=== PATIENT | female | born 1970 | race Caucasian/White ===

== ENCOUNTER 2023-05-08 08:17 | Outpatient (CLI) | payer OTHER, SELFPAY ==
--- NOTE | ~2023-05-08 | XR_ITS ---
XR knee RT min 4V DATE: 05/08/2023 08:52 INDICATION: Right knee pain since January 2023. No injury. TECHNIQUE: [place] view. Weightbearing AP, PA and lateral views. COMPARISON: None FINDINGS: There is slight periarticular spurring of the patella. Joint spaces are relatively preserve d. No radiopaque intra-articular loose body or chondrocalcinosis. No fracture or dislocation, periost eal reaction or bone destruction. IMPRESSION: Slight periarticular spurring of the patella Reviewed, dictated and finalized at location [facility]
== END 2023-05-08 08:18 | disposition home or self-care (01) ==
LOC: ANHIMG 08:24
PROVIDERS: PCP Family Medicine; Visit Provider Family Medicine
DX: M25.561 Pain in right knee (principal)
CPT/HCPCS: 73564

== ENCOUNTER 2023-08-07 14:43 | Outpatient (CLI) | payer OTHER, SELFPAY ==
--- NOTE | ~2023-08-07 | DEXA_ITS ---
Bone Density Report Name: BRANDON BETANCUR Age: 52 Sex: Female Ethnicity: White Date of : 1970 Indication: postmenopausal; screening for osteoporosis; height loss; Referring Provider: JOHNATHON, NIKHIL Study: Bone densitometry was performed. Exam Date: August 07, 2023 Accession number: [id number] Bone Density: Region BMD T-score Z-score Classification AP Spine (L1-L4) 1.013 -0.3 0.8 Normal Femoral Neck (Left) 0.639 -1.9 -0.9 Osteopenia Total Hip (Left) 0.875 -0.5 0.1 Normal Femoral Neck (Right) 0.615 -2.1 -1.1 Osteopenia Total Hip (Right) 0.854 -0.7 -0.1 Normal Total Hip Mean 0.865 -0.6 0.0 Normal World Health Organization criteria for BMD impression classify patients as: Normal (T-score at or above -1.0), Osteopenia (T-score between -1.0 and -2.5), or Osteoporosis (T-score at or below -2.5). 10-year Fracture Risk(1): Major Osteoporotic Fracture 7.8% Hip Fracture 0.9% Reported Risk Factors: [place] (), Neck BMD=0.615, BMI=26.9 (1) FRAX(R) Version 3.08. Fracture probability calculated for an untreated patient. Fracture probability may be lower if the patient has received treatment. Clinical Information Provided by Patient: Has used the following medications: HRT (i.e. estrogen/hormone therapy) Patient maximum height was 64.25 Menopause Age: 51 No regular weight bearing exercise Does not regularly consume dairy products Drinks caffeinated beverages Onset of menses at age 9 Number of children 3 Impression: The patient has low bone mass, based on the Right Femoral Neck T-score. The patient has an estimated ten-year risk of hip fracture of 0.9% and an estimated ten-year risk of major fracture of 7.8%, based on the WHO FRAX algorithm. Discussion: BONE DENSITY IS LOW AT ONE OR MORE SKELETAL SITES. This patient's lowest T-score is low at one or more skeletal sites. It meets the World Health Organization's (WHO) criteria for ?low bone mass? (T-score between -1.0 and -2.5). The patient's 10-year risk of fracture as calculated by FRAX is less than the threshold where pharmacological therapy is recommended by the National Osteoporosis Foundation (NOF). However, all treatment decisions require clinical judgment and consideration of individual patient factors, including patient preferences, comorbidities, previous drug use, risk factors not captured in the FRAX model (e.g., frailty, falls, vitamin D deficiency, increased bone turnover, interval significant decline in bone density) and possible under or overestimation of fracture risk by FRAX. The patient should follow a healthful lifestyle (good nutrition with adequate calcium and vitamin D, and appropriate weight-bearing exercise). Follow-Up: Consider repeating this study in 2 to 3 years to reassess this patient's status, or luz maria
== END 2023-08-07 14:44 ==
PROVIDERS: PCP Nurse Practitioner; Visit Provider Nurse Practitioner
DX: Z78.0 Asymptomatic menopausal state (principal); M85.852 Other specified disorders of bone density and structure, left thigh; M85.851 Other specified disorders of bone density and structure, right thigh
CPT/HCPCS: 77080

== ENCOUNTER 2025-04-04 12:36 | Emergency (ER) | payer OTHER, SELFPAY ==
--- NOTE | 2025-04-04 | CONSULT_PTH ---
PATIENT: Maryam Alegre LOC: [facility]#:[id number] AGE/SX: 54/F ROOM: RE04/04/[address]: Nithya Villasenor MD : 1970 BED: DIS: 04/04/2025 SPEC #: [id number] RECD: 04/04/25 14:17 STATUS: SHAHIDA RE #: [id number] TAMARA: 04/04/25 00:[address]: Nithya Villasenor DEPT: [facility] Consult RECD BY: Beata Waller MLT, ([facility]) Tissues: A - Peripheral Smear Procedures: Hematology Consult
[2025-04-04 12:39] VITALS: BP 144/117; PULSE 102; RESP 20; TEMP 36.7; O2SAT 98
[2025-04-04 13:21] LABS: Add Urine Microscopic? NO; Appearance Urine Clear (Clear); Glucose Urine UA Negative (Negative); Leukocyte Esterase Ur Negative LEU/UL (Negative); Nitrate Urine Negative (Negative); Specific Grav Ur 1.003 (1.001-1.035)
[2025-04-04 13:22] LABS: Hematocrit 41.6 % (37.0-47.0); Hemoglobin 13.7 g/dL (12.0-15.0); Mean Corpuscular HGB Conc 32.9 g/dl (32-36); Mean Corpuscular Hemoglobin 29.3 pg (26-34); Mean Corpuscular Volume 88.9 fl (80-100); Platelet Count Result 216 k/mm3 (150-375); Red Blood Count 4.68 M/mm3 (4.2-5.4); White Blood Count 12.2 K/mm3 (4.5-10.0)
[2025-04-04] MEDS: ONDANSETRON HCL ODT 4 MG TABLET PO (13:30)
[2025-04-04] MEDS: MAG HYDROX/AL HYDROX/SIMETH 30 ML UDC PO (13:30)
[2025-04-04 13:36] LABS: Alanine Aminotransferase 33 U/L (6-35); Albumin Level 4.3 g/dL (3.5-5.1); Alkaline Phosphatase 67 U/L (38-126); Anion Gap 6 mmol/L (4-12); Aspartate Amino Transferase 52 U/L (14-36); Bilirubin,Total 0.5 mg/dL (0.2-1.3); Blood Urea Nitrogen 9 mg/dL (7-17); Calcium 9.1 mg/dL (8.4-10.2); Carbon Dioxide 29 mmol/L (22-30); Chloride 104 mmol/L (98-107); Estimated CRCL calculation 58 ml/min; Estimated Glomerular Filt Rate > 60; Glucose 96 mg/dL (65-110); Lipase 97 U/L (23-300); Potassium 4.0 mmol/L (3.4-5.0); Sodium 139 mmol/L (137-145); Total Protein 7.6 g/dL (6.3-8.2)
--- OUTSIDE RECORDS SUMMARY | 2025-04-04 13:42 | XMS_ITS | Encounter Summary ---
Author Organization [facility] Address [address] [place] [address] Care Team Providers Care Certified Alcohol And Drug Counselor Name Role Phone Unavailable Primary Care Provider Unavailabl e Encounter Details Date Type Department Care Team (Latest Contact Info) Description 07/23/2021 [facility] [place] Social History Tobacco Use Types Packs/Day Years Used Date Smoking Tobacco: Never Assessed Comments Unknown Sex and Gender Information Value Date Recorded Sex Assigned at Not on file Legal Sex Female 10:32 AM [facility] Gender Identity Not on file Sexual Orientation Not on file documented as of this encounter Plan of Treatment Not on file documented as of this encounter Visit Diagnoses Not on filedocumented in this encounter
--- OUTSIDE RECORDS SUMMARY | 2025-04-04 13:42 | XMS_ITS | Encounter Summary ---
Author Organization [facility] Address [address] [place] [address] Care Team Providers Care Convention Manager Name Role Phone Unavailable Primary Care Provider Unavailabl e Encounter Details Date Type Department Care Team (Latest Contact Info) Description 04/07/2023 [facility] [place] Social History Tobacco Use Types Packs/Day Years Used Date Smoking Tobacco: Never Assessed Comments Unknown Sex and Gender Information Value Date Recorded Sex Assigned at Not on file Legal Sex Female 10:32 AM [facility] Gender Identity Not on file Sexual Orientation Not on file documented as of this encounter Plan of Treatment Not on file documented as of this encounter Visit Diagnoses Not on filedocumented in this encounter
--- OUTSIDE RECORDS SUMMARY | 2025-04-04 13:42 | XMS_ITS | Clinical Summary ---
Author Organization [facility] Address [address] [place] [address] Care Team Providers Care Sap Abap Programmer Name Role Phone Unavailable Primary Care Provider Unavailabl e Social History Tobacco Use Types Packs/Day Years Used Date Smoking Tobacco: Never Assessed Comments Unknown Sex and Gender Information Value Date Recorded Sex Assigned at Not on file Legal Sex Female 10:32 AM [facility] Gender Identity Not on file Sexual Orientation Not on file Plan of Treatment Not on file Insurance VICTORIANO JUAN [id number] CIGNA CIGNA VICTORIANO JUAN [id number]
--- OUTSIDE RECORDS SUMMARY | 2025-04-04 13:42 | XMS_ITS | Encounter Summary ---
Author Organization [facility] Address [address] [place] [address] Care Team Providers Care Product Director Name Role Phone Unavailable Primary Care Provider Unavailabl e Encounter Details Date Type Department Care Team (Latest Contact Info) Description 05/30/2022 [facility] [place] Social History Tobacco Use Types Packs/Day Years Used Date Smoking Tobacco: Never Assessed Comments Unknown Sex and Gender Information Value Date Recorded Sex Assigned at Not on file Legal Sex Female 10:32 AM [facility] Gender Identity Not on file Sexual Orientation Not on file documented as of this encounter Plan of Treatment Not on file documented as of this encounter Visit Diagnoses Not on filedocumented in this encounter
--- OUTSIDE RECORDS SUMMARY | 2025-04-04 13:42 | XMS_ITS | Clinical Summary ---
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 Encounters Date Type Department Care Team Description 02/09/2025 8:40 AM CDT - 02/09/2025 11:59 PM CDT Hospital Encounter [facility] - Breast Imaging [address] [place] [id number] Abnormality of right breast on screening mammography Discharge Disposition: Discharge to home or self care 02/09/2025 8:40 AM CDT - 02/09/2025 11:59 PM CDT Hospital Encounter [facility] - Breast Imaging [address] [place] [address] [address] [place] [address] Abnormality of right breast on screening mammography Discharge Disposition: Discharge to home or self care 02/09/2025 Results Follow-Up [facility] [address] [place] [address] Floor [address] [place] [id number] Lourdes Acosta PA Diagnostic Mammogram Right [place] 02/03/2025 Orders Only [facility] [address] [place] [address] [address] [place] [address] Lourdes Acosta PA Mass of right breast, unspecified quadrant (Primary Dx) 02/03/2025 Results Follow-Up [facility] [address] [place] [address] [address] [place] [address] Lourdes Acosta PA Screening Mammogram Bilateral W [place] 02/01/2025 8:30 AM CDT - 02/01/2025 11:59 PM CDT Hospital Encounter [facility] - Breast Imaging [address] [place] [address] [address] [place] [address] Encounter for screening mammogram for malignant neoplasm of breast Discharge Disposition: Discharge to home or self care 02/01/2025 8:30 AM CDT [facility] [address] [place] [address] [address] [place] [address] Lourdes Acosta PA Fibroadenoma of breast, unspecified laterality (Primary Dx); Encounter for screening mammogram for malignant neoplasm of breast; Fibrocystic breast changes of both breasts 01/31/2025 [facility] [address] [place] [address] [address] [place] [address] Lourdes Acosta PA Encounter for screening mammogram for malignant neoplasm of breast (Primary Dx) from Last 3 Months Immunizations Immunization Administration Dates Next Due H1N1 All Forms 05/03/2009 Hep A, Adult 06/27/2021,11/24/2019 Influenza, Quadrivalent, Spl it, Preservative Free, Intramuscular 01/20/2020 Influenza, Trivalent, IM (MDV) ,04/21/2017,02/02/2017,02/15 Pfizer SARS-CoV-2 Monovalent Vaccination (12+ Yrs) PURPLE 04/19/2021,08/11/2020,07/21/2020 Tdap 11/24/2019,05/03/2008 Surgical History Surgery Date Site/Laterality Comments BREAST BIOPSY 05/05/2008 - 05/04/2009 BREAST EXCISIONAL BIOPSY 05/05/2008 - 05/04/2009 Left Medical History Medical History Date Comments Fibroadenoma of breast Family History Medical History Relation Name Comments No Known Problems Father No Known Problems Mother Relation Name Status Comments Father Mother Social History Tobacco Use Types Packs/Day Years Used Date Smoking Tobacco: Never Smokeless Tobacco: Never Alcohol Use Standard Drinks/Week Comments Defer 0 (1 standard drink = 0.6 oz pur e alcohol) Comments No Sex and Gender Information Value Date Recorded Sex Assigned at Not on file 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 Gender Identity Not on file Sexual Orientation Not on file Obstetrics History Para Term AB IAB SAB Ectopic Multiple Livin g Live Births 5 3 Date Outcome GA Total Labor Labor/2nd/3rd Weight Sex Type Anes PTL Vane A1 A5 Name Clin Last Filed Vital Signs Vital Sign Reading Time Taken Comments Blood Pressure 116/75 07/26/2014 4:06 PM CDT Pulse 71 07/26/2014 4:06 PM CDT Temperature - - Respiratory Rate - - Oxygen Saturation 100% 07/26/2014 4:06 PM CDT Inhaled Oxygen Concentration - - Weight 71 kg (156 lb 9.6 oz) 02/01/2025 8:35 AM CDT Height 164.2 cm (5' 4.65) 02/01/2025 8:35 AM CD T Body Mass Index 26.35 02/01/2025 8:35 AM CDT Plan of Treatment Health Maintenance Due Date Last Done Comments Cervical Cancer Screening 1970 Colon Cancer Screening-Colonoscopy 1970 Depression Screening 1970 Hepatitis C Screening 1970 Hepatitis B Screening 1986 Regular Well Visit/Exam 18-64 1986 Zoster Vaccine (1 of 2) 2018 Covid-19 Vaccine ( season) 2025 04/19/2021, 08/11/2020, 07/21/2020 Influenza Vaccine (#1) 2025 , 01/20/2020, 04/21/2017, Additional history exists Breast Cancer Screening-Mammogram 02/01/2026 02/01/2025, 01/26/2024, 01/20/2023, Additional history exists DTaP/Tdap/Td Vaccine (3 - Td or Tdap) 11/23/2029 11/24/2019, 05/03/2008 Pneumococcal vaccine <65 Aged Out No longer eligible based on patient's age to complete this topic Procedures Procedure Name Priority Date/Time Associated Diagnosis Comments US BREAST RIGHT LIMITED Schedule Routine, Read Routine (OP Routine) 02/09/2025 9:31 AM CDT Abnormality of right breast on screening mammography DIAGNOSTIC MAMMOGRAM RIGHT W [place] Schedule Routine, Read Routine (OP Routine) 02/09/2025 9:12 AM CDT Abnormality of right breast on screening mammography SCREENING MAMMOGRAM BILATERAL W [place] Schedule Routine, Read Routine (OP Routine) 02/01/2025 9:06 AM CDT Encounter for screening mammogram for malignant neoplasm of breast from Last 3 Months Results * US Breast Right Limited (02/09/2025 9:31 AM CDT) Anatomical Region Laterality Modality Breast Right Ultrasound 02/09/2025 9:45 AM CDT Impressions 02/09/2025 10:52 AM CDT 1. Screen detected small oval mass in the lower central right breast at mammography correlates with a 0.7 cm benign cyst in the right breast at 6:00, 9 cm from the nipple. 2. No mammographic evidence of malignancy in the right breast. OVERALL FINAL ASSESSMENT: BI-RADS Category 2: Benign. RECOMMENDATION: Annual screening mammography is recommended. Dr. Danielle Easton discussed the above findings and recommendations with the patient. Dictated by: Danielle Easton MD The radiology attending physician has personally reviewed this study, and had reviewed and/or edited this written report and agrees with it. Electronically signed by: Josiane Flores MD Narrative 02/09/2025 10:52 AM CDT EXAMINATION: RIGHT UNILATERAL DIGITAL DIAGNOSTIC MAMMOGRAM AND DIGITAL BREAST TOMOSYNTHESIS; RIGHT BREAST SONOGRAM HISTORY: 54-year-old woman presents for further evaluation of screen detected right small oval breast mass. COMPARISON: Screening mammogram 02/01/2025, screening mammogram 01/26/2024, screening mammogram 01/20/2023, screening mammogram 01/18/2022 TECHNIQUE: Full field digital mammographic views of the RIGHT breast were performed, including computer aided detection (CAD) and digital breast tomosynthesis (DBT). Directed ultrasound evaluation of the RIGHT breast was performed by a trained bucket pusher and by Dr. Easton. BREAST PARENCHYMAL COMPOSITION: There are scattered areas of fibroglandular density. MAMMOGRAM FINDINGS: Oval slightly lobulated circumscribed 0.8 cm mass in the lower central right breast persists on spot compression. No other suspicious finding is seen in right breast. SONOGRAM FINDINGS: In the right breast at 6:00, 9 cm from nipple there is a 0.7 x 0.6 x 0.3 cm oval, slightly lobulated circumscribed anechoic benign cyst, without associated vascularity. This correlates with the findings on mammogram. us Lourdes RANGEL IM MAMMO PROCEDURES Final Resu lt * Diagnostic Mammogram Right W [place] (02/09/2025 9:12 AM CDT) Anatomical Region Laterality Modality Breast Right Mammography 02/09/2025 9:45 AM CDT Impressions 02/09/2025 10:52 AM CDT 1. Screen detected small oval mass in the lower central right breast at mammography correlates with a 0.7 cm benign cyst in the right breast at 6:00, 9 cm from the nipple. 2. No mammographic evidence of malignancy in the right breast. OVERALL FINAL ASSESSMENT: BI-RADS Category 2: Benign. RECOMMENDATION: Annual screening mammography is recommended. Dr. Danielle Easton discussed the above findings and recommendations with the patient. Dictated by: Danielle Easton MD The radiology attending physician has personally reviewed this study, and had reviewed and/or edited this written report and agrees with it. Electronically signed by: Josiane Flores MD Narrative 02/09/2025 10:52 AM CDT EXAMINATION: RIGHT UNILATERAL DIGITAL DIAGNOSTIC MAMMOGRAM AND DIGITAL BREAST TOMOSYNTHESIS; RIGHT BREAST SONOGRAM HISTORY: 54-year-old woman presents for further evaluation of screen detected right small oval breast mass. COMPARISON: Screening mammogram 02/01/2025, screening mammogram 01/26/2024, screening mammogram 01/20/2023, screening mammogram 01/18/2022 TECHNIQUE: Full field digital mammographic views of the RIGHT breast were performed, including computer aided detection (CAD) and digital breast tomosynthesis (DBT). Directed ultrasound evaluation of the RIGHT breast was performed by a trained bucket pusher and by Dr. Easton. BREAST PARENCHYMAL COMPOSITION: There are scattered areas of fibroglandular density. MAMMOGRAM FINDINGS: Oval slightly lobulated circumscribed 0.8 cm mass in the lower central right breast persists on spot compression. No other suspicious finding is seen in right breast. SONOGRAM FINDINGS: In the right breast at 6:00, 9 cm from nipple there is a 0.7 x 0.6 x 0.3 cm oval, slightly lobulated circumscribed anechoic benign cyst, without associated vascularity. This correlates with the findings on mammogram. us Lourdes RANGEL IMG MAMMO PROCEDURES Final Resu lt * (ABNORMAL) Screening Mammogram Bilateral W [place] (02/01/2025 9:06 AM CDT) Anatomical Region Laterality Modality Breast Bilateral Mammography Addenda Addendum by Esmer Jenkins MD on 02/04/2025 12:37 PM CDT This addendum is being issued to correct the transcribed BI-RADS and Recommendations in the report. OVERALL BI-RADS FINAL ASSESSMENT: 0 - Incomplete: Needs Additional Imaging Evaluation RECOMMENDATION: Recommend right breast diagnostic mammogram with possible ultrasound. Impressions 02/02/2025 4:19 PM CDT Right 1) Mass: Right breast mass in the lower central region. Assessment: 0 - Incomplete. Diagnostic mammogram with possible ultrasound is recommended. Left No evidence of malignancy. OVERALL BI-RADS FINAL ASSESSMENT: 1 - Negative RECOMMENDATION: Recommend bilateral annual screening mammography. Narrative 02/02/2025 4:19 PM CDT EXAMINATION: Screening Mammogram Bilateral W Is[place]: 02/01/2025 COMPARISON: Relevant prior studies available at the time of interpretation were reviewed, including the most recent mammogram on: 01/26/2024. TECHNIQUE: Mammography was performed with 2D and 3D digital breast tomosynthesis (DBT) images. CAD was utilized. BREAST PARENCHYMAL COMPOSITION: There are scattered areas of fibroglandular density. FINDINGS: Right 1) Mass: There is a mass seen in the lower central region of the right breast. This finding needs additional imaging evaluation. Left There is no suspicious mass, calcification, or architectural distortion. Lourdes RANGEL IMG MAMMO PROCEDURES Edited Res ult - Final from Last 3 Months [facility] [employer] OPEN ACCESS CIGNA OPEN ACCESS [facility] OPEN ACCESS Care Teams Oncology Consultant Relationship Specialty Start Date End Date Elda Gore MD PCP - General 06/03/17
--- OUTSIDE RECORDS SUMMARY | 2025-04-04 13:42 | XMS_ITS | Encounter Summary ---
Author Organization [facility] Address [address] [facility] [address] [place] [address] Phone Care Team Providers Care Plastics Repairer Name Role Phone Elda Gore MD Primary Care Provider + Encounter Details Date Type Department Care Team (Late st Contact Info) Description 02/09/2025 Results Follow-Up [facility] Surgery [address] [facility] Floor [address] [place] [phone] Lourdes Acosta PA [address] [facility] [phone] [place] [address] Diagnostic Mammogram Right W [place] Social History Tobacco Use Types Packs/Day Years Used Date Smoking Tobacco: Never Smokeless Tobacco: Never Alcohol Use Standard Drinks/Week Comments Defer 0 (1 standard drink = 0.6 oz pur e alcohol) Comments No Sex and Gender Information Value Date Recorded Sex Assigned at Not on file 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
--- OUTSIDE RECORDS SUMMARY | 2025-04-04 13:42 | XMS_ITS | Encounter Summary ---
Author Organization [facility] Address [address] [place] [address] Care Team Providers Care Program Scheduler Name Role Phone Unavailable Primary Care Provider Unavailabl e Encounter Details Date Type Department Care Team (Latest Contact Info) Description 05/07/2021 [facility] [place] Social History Tobacco Use Types Packs/Day Years Used Date Smoking Tobacco: Never Assessed Comments Unknown Sex and Gender Information Value Date Recorded Sex Assigned at Not on file Legal Sex Female 10:32 AM [facility] Gender Identity Not on file Sexual Orientation Not on file documented as of this encounter Plan of Treatment Not on file documented as of this encounter Visit Diagnoses Not on filedocumented in this encounter
--- OUTSIDE RECORDS SUMMARY | 2025-04-04 13:42 | XMS_ITS | Encounter Summary ---
Author Organization [facility] Address [address] [place] [address] Care Team Providers Care Process Plant Operator Name Role Phone Unavailable Primary Care Provider Unavailabl e Encounter Details Date Type Department Care Team (Latest Contact Info) Description 04/04/2021 [facility] [place] AD[place] Social History Tobacco Use Types Packs/Day Years Used Date Smoking Tobacco: Never Assessed Comments Unknown Sex and Gender Information Value Date Recorded Sex Assigned at Not on file Legal Sex Female 10:32 AM [facility] Gender Identity Not on file Sexual Orientation Not on file documented as of this encounter Plan of Treatment Not on file documented as of this encounter Visit Diagnoses Not on filedocumented in this encounter
--- OUTSIDE RECORDS SUMMARY | 2025-04-04 13:42 | XMS_ITS | Encounter Summary ---
Author Organization [facility] Address [address] [facility] [address] [place] [address] Phone Care Team Providers Care Concrete Handler Name Role Phone Elda Gore MD Primary Care Provider + Encounter Details Date Type Department Care Team (Late st Contact Info) Description 02/03/2025 Results Follow-Up [facility] Medicine Surgery [address] 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
--- OUTSIDE RECORDS SUMMARY | 2025-04-04 13:42 | XMS_ITS | Encounter Summary ---
Author Organization [facility] Address [address] [place] [address] Care Team Providers Care Public Health Analyst Name Role Phone Unavailable Primary Care Provider Unavailabl e Encounter Details Date Type Department Care Team (Latest Contact Info) Description 04/22/2024 [facility] [place] ADM Social History Tobacco Use Types Packs/Day Years Used Date Smoking Tobacco: Never Assessed Comments Unknown Sex and Gender Information Value Date Recorded Sex Assigned at Not on file Legal Sex Female 10:[address] [facility] Gender Identity Not on file Sexual Orientation Not on file documented as of this encounter Plan of Treatment Not on file documented as of this encounter Visit Diagnoses Not on filedocumented in this encounter
--- OUTSIDE RECORDS SUMMARY | 2025-04-04 13:42 | XMS_ITS | Encounter Summary ---
Author Organization [facility] Address [address] [place] [address] Care Team Providers Care Mds Nurse Name Role Phone Unavailable Primary Care Provider Unavailabl e Encounter Details Date Type Department Care Team (Latest Contact Info) Description 07/05/2022 [facility] [place] ADM Social History Tobacco Use Types Packs/Day Years Used Date Smoking Tobacco: Never Assessed Comments Unknown Sex and Gender Information Value Date Recorded Sex Assigned at Not on file Legal Sex Female 10:32 AM [facility] Gender Identity Not on file Sexual Orientation Not on file documented as of this encounter Plan of Treatment Not on file documented as of this encounter Visit Diagnoses Not on filedocumented in this encounter
--- OUTSIDE RECORDS SUMMARY | 2025-04-04 13:42 | XMS_ITS | Encounter Summary ---
Author Organization [facility] Address [address] [place] [address] Care Team Providers Care Reinforcement Maker Name Role Phone Unavailable Primary Care Provider Unavailabl e Encounter Details Date Type Department Care Team (Latest Contact Info) Description 06/06/2023 [facility] [place] AD[place] Social History Tobacco Use Types Packs/Day [...]
--- OUTSIDE RECORDS SUMMARY | 2025-04-04 13:42 | XMS_ITS | Encounter Summary ---
Author Organization [facility] Address [address] [place] [address] Care Team Providers Care Psychiatric Aide Name Role Phone Unavailable Primary Care Provider Unavailabl e Encounter Details Date Type Department Care Team (Latest Contact Info) Description 03/26/2021 [facility] [place] ADM Social History Tobacco Use Types Packs/Day Years Used Date Smoking Tobacco: Never Assessed Comments Unknown Sex and Gender Information Value Date Recorded Sex Assigned at Not on file Legal Sex Female 10:32 AM [facility] Gender Identity Not on file Sexual Orientation Not on file documented as of this encounter Plan of Treatment Not on file documented as of this encounter Visit Diagnoses Not on filedocumented in this encounter
[2025-04-04 13:52] LABS: Band Neutrophils Percent 1 % (0-6); Eosinophils Absolute Manual 3.29 K/mm3 (0.02-0.50); Eosinophils Percent Manual 27 % (0-4); Lymphocytes Absolute Manual 4.63 K/mm3 (1.1-4.5); Lymphocytes Percent Manual 38 % (18-44); Monocytes Absolute Manual 0.12 K/mm3 (0.1-0.90); Monocytes Percent Manual 1 % (3-9); Neutrophils Absolute Manual 4.14 K/mm3 (1.3-6.7); Neutrophils Percent Manual 33 % (46-73); Total Cells Counted 100
[2025-04-04 13:53] LABS: Acanthocytes 1+; Microcytosis 1+ (NORMAL); Schistocytes None Seen; Stomatocytes 1+
--- OUTSIDE RECORDS SUMMARY | 2025-04-04 14:45 | XMS_ITS | Encounter Summary ---
Author Organization [facility] Address [address] [facility] [address] [place] [address] Phone Care Team Providers Care Health Information Systems Technician Name Role Phone Elda Gore MD Primary Care Provider + Encounter Details Date Type Department Care Team (Late st Contact Info) Description 02/03/2025 Results Follow-Up [facility] Medicine Surgery [address] [facility] Floor 8 [place] [phone] Lourdes Acosta PA [address] [facility] [phone] [place] [address] Screening Mammogram Bilateral W Dennis Social History Tobacco Use Types Packs/Day Years Used Date Smoking Tobacco: Never Smokeless Tobacco: Never Alcohol Use Standard Drinks/Week Comments Defer 0 (1 standard drink = 0.6 oz pur e alcohol) Comments No Sex and Gender Information Value Date Recorded Sex Assigned at Not on file 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
--- OUTSIDE RECORDS SUMMARY | 2025-04-04 14:45 | XMS_ITS | Clinical Summary ---
Author Organization [facility] Address [address] [place] [address] Care Team Providers Care Oracle Distribution Consultant Name Role Phone Unavailable Primary Care Provider Unavailabl e Social History Tobacco Use Types Packs/Day Years Used Date Smoking Tobacco: Never Assessed Comments Unknown Sex and Gender Information Value Date Recorded Sex Assigned at Not on file Legal Sex Female 10:32 AM [facility] Gender Identity Not on file Sexual Orientation Not on file Plan of Treatment Not on file Insurance VICTOR[place] JUAN [id number] CIGNA CIGNA [place]CTOR[place]O JUAN [id number]
--- OUTSIDE RECORDS SUMMARY | 2025-04-04 14:45 | XMS_ITS | Encounter Summary ---
Author Organization [facility] Address [address] [place] [address] Care Team Providers Care Fish Trapper Name Role Phone Unavailable Primary Care Provider Unavailabl e Encounter Details Date Type Department Care Team (Latest Contact Info) Description 04/07/2023 [facility] [place] ADM Social History Tobacco Use Types Packs/Day Years Used Date Smoking Tobacco: Never Assessed Comments Unknown Sex and Gender Information Value Date Recorded Sex Assigned at Not on file Legal Sex Female 10:32 AM [facility] Gender Identity Not on file Sexual Orientation Not on file documented as of this encounter Plan of Treatment Not on file documented as of this encounter Visit Diagnoses Not on filedocumented in this encounter
--- OUTSIDE RECORDS SUMMARY | 2025-04-04 14:45 | XMS_ITS | Encounter Summary ---
Author Organization [facility] Address [address] [place] [address] Care Team Providers Care Machine Heel Sprayer Name Role Phone Unavailable Primary Care Provider Unavailabl e Encounter Details Date Type Department Care Team (Latest Contact Info) Description 04/22/2024 [facility] [place] ADM Social History Tobacco Use Types Packs/Day Years Used Date Smoking Tobacco: Never Assessed Comments Unknown Sex and Gender Information Value Date Recorded Sex Assigned at Not on file Legal Sex Female 10:32 AM [facility] Gender Identity Not on file Sexual Orientation Not on file documented as of this encounter Plan of Treatment Not on file documented as of this encounter Visit Diagnoses Not on filedocumented in this encounter
--- OUTSIDE RECORDS SUMMARY | 2025-04-04 14:45 | XMS_ITS | Encounter Summary ---
Author Organization [facility] Address [address] [place] [address] Care Team Providers Care Blank Driller Name Role Phone Unavailable Primary Care Provider Unavailabl e Encounter Details Date Type Department Care Team (Latest Contact Info) Description 04/04/2021 [facility] [place] ADM Social History Tobacco Use Types Packs/Day Years Used Date Smoking Tobacco: Never Assessed Comments Unknown Sex and Gender Information Value Date Recorded Sex Assigned at Not on file Legal Sex Female 10:32 AM [facility] Gender Identity Not on file Sexual Orientation Not on file documented as of this encounter Plan of Treatment Not on file documented as of this encounter Visit Diagnoses Not on filedocumented in this encounter
--- OUTSIDE RECORDS SUMMARY | 2025-04-04 14:45 | XMS_ITS | Encounter Summary ---
Author Organization [facility] Address [address] [place] [address] Care Team Providers Care Manager Interface Name Role Phone Unavailable Primary Care Provider Unavailabl e Encounter Details Date Type Department Care Team (Latest Contact Info) Description 07/05/2022 [facility] [place] ADM Social History Tobacco Use Types Packs/Day Years Used Date Smoking Tobacco: Never Assessed Comments Unknown Sex and Gender Information Value Date Recorded Sex Assigned at Not on file Legal Sex Female 10:32 AM [facility] Gender Identity Not on file Sexual Orientation Not on file documented as of this encounter Plan of Treatment Not on file documented as of this encounter Visit Diagnoses Not on filedocumented in this encounter
--- OUTSIDE RECORDS SUMMARY | 2025-04-04 14:45 | XMS_ITS | Encounter Summary ---
Author Organization [facility] Address [address] [place] [address] Care Team Providers Care Nuclear Medicine Physician Name Role Phone Unavailable Primary Care Provider Unavailabl e Encounter Details Date Type Department Care Team (Latest Contact Info) Description 05/07/2021 [facility] [place] ADM Social History Tobacco Use Types Packs/Day [...]
--- OUTSIDE RECORDS SUMMARY | 2025-04-04 14:45 | XMS_ITS | Encounter Summary ---
Author Organization [facility] Address [address] [place] [address] Care Team Providers Care Glass Tube Bender Name Role Phone Unavailable Primary Care Provider Unavailabl e Encounter Details Date Type Department Care Team (Latest Contact Info) Description 07/23/2021 [facility] [place] ADM Social History Tobacco Use Types Packs/Day Years Used Date Smoking Tobacco: Never Assessed Comments Unknown Sex and Gender Information Value Date Recorded Sex Assigned at Not on file Legal Sex Female 10:32 AM [facility] Gender Identity Not on file Sexual Orientation Not on file documented as of this encounter Plan of Treatment Not on file documented as of this encounter Visit Diagnoses Not on filedocumented in this encounter
--- OUTSIDE RECORDS SUMMARY | 2025-04-04 14:45 | XMS_ITS | Encounter Summary ---
Author Organization [facility] Address [address] [place] [address] Care Team Providers Care Industrial Registered Nurse Name Role Phone Unavailable Primary Care Provider Unavailabl e Encounter Details Date Type Department Care Team (Latest Contact Info) Description 06/06/2023 [facility] [place]M Social History Tobacco Use Types Packs/Day Years Used Date Smoking Tobacco: Never Assessed Comments Unknown Sex and Gender Information Value Date Recorded Sex Assigned at Not on file Legal Sex Female 10:32 AM [facility] Gender Identity Not on file Sexual Orientation Not on file documented as of this encounter Plan of Treatment Not on file documented as of this encounter Visit Diagnoses Not on filedocumented in this encounter
--- OUTSIDE RECORDS SUMMARY | 2025-04-04 14:45 | XMS_ITS | Encounter Summary ---
Author Organization [facility] Address [address] [place] [address] Care Team Providers Care Pulverizer Name Role Phone Unavailable Primary Care Provider Unavailabl e Encounter Details Date Type Department Care Team (Latest Contact Info) Description 05/30/2022 [facility] [place] ADM Social History Tobacco Use Types Packs/Day Years Used Date Smoking Tobacco: Never Assessed Comments Unknown Sex and Gender Information Value Date Recorded Sex Assigned at Not on file Legal Sex Female 10:32 AM [facility] Gender Identity Not on file Sexual Orientation Not on file documented as of this encounter Plan of Treatment Not on file documented as of this encounter Visit Diagnoses Not on filedocumented in this encounter
--- OUTSIDE RECORDS SUMMARY | 2025-04-04 14:45 | XMS_ITS | Encounter Summary ---
Author Organization [facility] Address [address] [facility] [address] [place] [address] Phone Care Team Providers Care Warranty Administrator Name Role Phone Edla Gore MD Primary Care Provider + Encounter Details Date Type Department Care Team (Late st Contact Info) Description 02/09/2025 Results Follow-Up [facility] Medicine Surgery [address] 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
--- OUTSIDE RECORDS SUMMARY | 2025-04-04 14:45 | XMS_ITS | Encounter Summary ---
Author Organization [facility] Address [address] [place] [address] Care Team Providers Care Noc Technician Name Role Phone Unavailable Primary Care Provider Unavailabl e Encounter Details Date Type Department Care Team (Latest Contact Info) Description 03/26/2021 [facility] [place] ADM Social History Tobacco Use Types Packs/Day [...]
--- OUTSIDE RECORDS SUMMARY | 2025-04-04 14:45 | XMS_ITS | Clinical Summary ---
Author Organization [facility] [place] Address [address] [place] [address] Care Team Providers Care Bobbin Handler Name Role Phone Elda Gore MD [...] - 02/09/2025 11:59 PM CDT Hospital Encounter [facility] [address] [place] [address] Abnormality of right breast on screening mammography Discharge Disposition: Discharge to home or self care 02/09/2025 8:40 AM CDT - 02/09/2025 11:59 PM CDT Hospital Encounter [facility] [address] [place] [address] 8 [place] [address] Abnormality of right breast on screening mammography Discharge Disposition: Discharge to home or self care 02/09/2025 Results Follow-Up [facility] [address] [place] [address] Floor 8 [place] [phone] Lourdes Acosta PA Diagnostic Mammogram Right W [place] 02/03/2025 Orders Only [facility] [address] [place] [address] 8 [place] [address] Lourdes Acosta PA Mass of right breast, unspecified quadrant (Primary Dx) 02/03/2025 Results Follow-Up [facility] [address] [place] [address] 8 [place] [address] Lourdes Acosta PA Screening Mammogram Bilateral W [place] 02/01/2025 8:30 AM CDT - 02/01/2025 11:59 PM CDT Hospital Encounter [facility] [address] [place] [address] 8 [place] [address] Encounter for screening mammogram for malignant neoplasm of breast Discharge Disposition: Discharge to home or self care 02/01/2025 8:30 AM CDT [facility] [address] [place] [address] 8 [place] [address] oLurdes Acosta PA Fibroadenoma of breast, unspecified laterality (Primary Dx); Encounter for screening mammogram for malignant neoplasm of breast; Fibrocystic breast changes of both breasts 01/31/2025 [facility] [address] [place] [address] 8 [place] [address] Lourdes Acosta PA Encounter for screening mammogram [...] on file 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 Easton. BREAST PARENCHYMAL COMPOSITION: [...] RIGHT breast was performed by a trained account support analyst and by Dr. Easton. BREAST PARENCHYMAL COMPOSITION: [...] - Final from Last 3 Months [facility] [employer] OPEN ACCESS CIGNA OPEN [facility] Care Teams Bobbin Handler Relationship Specialty Start Date End Date Elda Gore MD PCP - General 06/03/17
--- NOTE | 2025-04-04 15:09 | ED.ABDPAIN ---
HPI - Abdominal Pain General Chief Complaint: Abdominal Pain Stated Complaint: abd pain x1week Time Seen by Provider: 04/04/25 13:10 History of Present Illness HPI narrative: For presenting here with epigastric abdominal discomfort/left upper quadrant discomfort and gas for the past week, saw a tele doc and was started on Pepcid, after which she started feeling much better. This morning had a little nausea, her pain is gone, was told to come to the ER. Related Data Home Medications ?Medication ?Instructions ?Recorded ?Confirmed ?Last Taken ?Type estradiol-norethindrone acet 0.5 1 tablet PO DAILY 06/27/21 10/28/23 Unknown History mg-0.1 mg tablet Allergies Allergy/AdvReac Type Severity Reaction Status Date / Time latex Allergy Hives Verified 04/04/25 12:37 Review of Systems Review of Systems: All systems reviewed & are unremarkable except as noted in HPI and below PMFSH Past Medical History Medical History (Updated 04/04/25 @ 13:17 by Nithya Villasenor MD) Morris's palsy Cyclothymic disorder Migraine asymptomatic Surgical History Surgical History H/O left breast biopsy 2009 fibroadenoma Family History Family History Father Diabetes mellitus Acute myocardial infarction Mother Family history of cardiovascular disease, Onset Age: 49 Social History Social History (Updated 11/04/24 @ 14:49 by Arabella Block MA) Smoking status: Never smoker Alcohol intake: current Alcohol use details: occasionally Substance use: current Substance use type: marijuana Last use: for sleep Friday and Saturdays Lack of Transportation: No Lack of Food: Never True Current Housing: I Have Housing Concerned About Future Housing: No Difficulty Paying Gas/Electric Bills: No Difficulty Paying for Meds: No Currently Unemployed: No Difficulty w/ Childcare or Family Care: No Exam Narrative: EXAMINATION OF ORGAN SYSTEMS/BODY AREAS: Constitutional: Vital signs per nursing GENERAL:[No acute distress, non-toxic appearing.] HEAD: Normal with no signs of head trauma. EYES: EOMI, conjunctiva normal ENT: Hearing grossly intact LUNGS: Nonlabored breathing. HEART: [Regular rate and rhythm] ABD: [Soft], nontender to palpation EXT: Normal range of motion SKIN: [No rashes or lesions.] NEURO: [Alert and oriented x 3. No gross focal sensory or strength deficits.] PSYCH: Normal affect Course Vital Signs Vital signs: Vital Signs Temperature 98.0 F 04/04/25 12:39 Pulse Rate 102 H 04/04/25 12:39 Respiratory Rate 20 04/04/25 12:39 Blood Pressure 144/117 H 04/04/25 12:39 Pulse Oximetry 98 04/04/25 12:39 Oxygen Delivery Room Air 04/04/25 12:39 Temperature 98.0 F 04/04/25 12:39 Pulse Rate 102 H 04/04/25 12:39 Respiratory Rate 20 04/04/25 12:39 Blood Pressure 144/117 H 04/04/25 12:39 Pulse Oximetry 98 04/04/25 12:39 Oxygen Delivery Room Air 04/04/25 12:39 MDM MDM Narrative Medical decision making narrative: For presenting here with epigastric abdominal discomfort/left upper quadrant discomfort and gas for the past week, saw a tele doc and was started on Pepcid, after which she started feeling much better. This morning had a little nausea, her pain is gone, was told to come to the ER. On exam she is very well-appearing, she has no pain, abdomen soft nontender.; she tells me she takes Aleve every single day and has for years, I suspect this may be contributing to her symptoms, she did not take the Aleve today and she has no pain today, I did obtain basic labs which are thankfully normal. Recommended she continue taking the Pepcid, avoid NSAIDs, follow-up to GI with return precautions. Differential Diagnosis Differential Diagnosis: Gastritis, peptic ulcer/gastric ulcer, biliary colic, pain otitis, etc. Lab Data 04/04/25 13:08 04/04/25 13:08 Labs: Lab Results 04/04/25 Range/Units 13:08 WBC 12.2 H (4.5-10.0) K/mm3 RBC 4.68 (4.2-5.4) M/mm3 Hgb 13.7 (12.0-15.0) g/dL Hct 41.6 (37.0-47.0) % MCV 88.9 (80-100) fl MCH 29.3 (26-34) pg MCHC 32.9 (32-36) g/dl RDW 13.2 (11.5-14.5) % Plt Count 216 (150-375) k/mm3 MPV 9.3 (7.4-10.4) fl Immature Gran % (Auto) Not Reportable Neut % (Auto) Not Reportable Lymph % (Auto) Not Reportable [place] % (Auto) Not Reportable Eos % (Auto) Not Reportable Baso % (Auto) Not Reportable Lymph # (Auto) Not Reportable [place] # (Auto) Not Reportable Eos # (Auto) Not Reportable Baso # (Auto) Not Reportable Abs Immat Gran (auto) Not Reportable Absolute Neuts (auto) Not Reportable Absolute Nucleated RBC Not Reportable Total Counted 100 Neutrophils % (Manual) 33 L (46-73) % Band Neutrophils % 1 (0-6) % Lymphocytes % (Manual) 38 (18-44) % Monocytes % (Manual) 1 L (3-9) % Eosinophils % (Manual) 27 H (0-4) % Nucleated RBC % Not Reportable Abs Neuts (Manual) 4.14 (1.3-6.7) K/mm3 Abs Lymphs (Manual) 4.63 H (1.1-4.5) K/mm3 Abs Monocytes (Manual) 0.12 (0.1-0.90) K/mm3 Absolute Eos (Manual) 3.29 H (0.02-0.50) K/mm3 Platelet Estimate Adequate (Adequate) Microcytosis 1+ (NORMAL) Stomatocytes 1+ Acanthocytes (Spur) 1+ Schistocytes None seen Sodium 139 (137-145) mmol/L Potassium 4.0 (3.4-5.0) mmol/L Chloride 104 (98-107) mmol/L Carbon Dioxide 29 (22-30) mmol/L Anion Gap 6 (4-12) mmol/L BUN 9 (7-17) mg/dL Creatinine 0.81 (0.7-1.0) mg/dL Estim Creat Clear Calc 58 ml/min Estimated GFR > 60 (59 - ) Glucose 96 (65-110) mg/dL Calcium 9.1 (8.4-10.2) mg/dL Total Bilirubin 0.5 (0.2-1.3) mg/dL AST 52 H (14-36) U/L ALT 33 (6-35) U/L Alkaline Phosphatase 67 (38-126) U/L Total Protein 7.6 (6.3-8.2) g/dL Albumin 4.3 (3.5-5.1) g/dL Lipase 97 (23-300) U/L Urine Color Yellow (Yellow) Urine Appearance Clear (Clear) Urine pH 7.0 (5.0-9.0) Ur Specific Mcclelland 1.003 (1.001-1.035) Urine Protein Negative (Negative) mg/dL Urine Glucose (UA) Negative (Negative) mg/dL Urine Ketones 1+ H (Negative) mg/dL Ur Blood (Man) Negative (Negative) Urine Nitrate Negative (Negative) Urine Bilirubin Negative (Negative) Urine Urobilinogen 0.2 (<2.0) mg/dL Leukocyte Esterase Rfl Negative (Negative) JEANETTE/UL Discharge Plan Discharge Clinical Impression: Epigastric abdominal pain Patient Disposition: Home Condition: Stable Instructions: Abdominal Pain (ED) Additional Instructions: You can follow-up with the GI specialist and continue taking pepcid, stop taking the Aleve or any other NSAIDs; if your symptoms return or worsen you can return to the ER. Patient Language: Zimbabwean Prescriptions: No Action estradiol-norethindrone acet 0.5-0.1 mg tablet 1 tablet PO DAILY Follow-up/Referrals: Elda Gore MD [Primary Care Provider, Family Practice] Dayton Rosa MD [Physician, Gastroenterology] - 3 Days
== END 2025-04-04 14:07 | disposition home or self-care (01) ==
PROVIDERS: Emergency Provider Emergency Medicine; PCP Family Medicine
DX: R10.13 Epigastric pain (principal)
CPT/HCPCS: 36415; 80053; 81003; 83690; 85025; 99283; A9270

== ENCOUNTER 2025-04-20 15:30 | Outpatient (CLI) | payer OTHER, SELFPAY ==
--- NOTE | ~2025-04-20 | CT_ITS ---
CT abdomen pelvis w con INDICATION:unspec abdominal pain . COMPARISON: None. TECHNIQUE: Axial images of the abdomen and pelvis were obtained following infusion of 100 mL Isovue 300. Dose optimization technique was utilized. FINDINGS: The lung bases are clear. The liver parenchyma is unremarkable. No intrahepatic mass or ductal dilatation is evident. The patient has had a cholecystectomy. The pancreas and spleen are normal in appearance. The adrenal glands are symmetric in size. The kidneys demonstrate symmetric uptake and excretion of contrast. 1.4 cm right renal cyst is noted. There is no solid mass. There is no hydronephrosis. Stomach and bowel loops are unremarkable. There are no bowel obstruction. Appendix is normal in appearance. There is mild diverticulosis without evidence of acute diverticulitis. The bladder and rectum are normal. The uterus and both adnexa are unremarkable. There is focal calcification in the endometrium. No free intraperitoneal fluid or air is evident. Multiple small mesenteric lymph nodes are noted measuring up to 6 mm in short axis dimension. There are small inguinal lymph nodes bilaterally measuring up to 7 mm in short axis dimension. The aorta, visceral vessels and renal arteries demonstrate normal caliber and patency. The lower thoracic and lumbar vertebrae are in normal alignment. IMPRESSION: No acute abnormality is noted in the abdomen and pelvis. Shotty central mesenteric and bilateral inguinal lymph nodes. Colonic diverticulosis without evidence of acute diverticulitis. All CT scans at this facility are performed using low dose modulation techniques as appropriate to perform exam including the following: automated exposure control; use of iterative reconstruction technique; adjustment of the mA and/or kV according to patient size (this includes techniques or standardized protocols for targeted exams where dose is matched to indication/reason for exam). Reviewed, dictated and finalized at location [facility] IMPRESSION: No acute abnormality is noted in the abdomen and pelvis. Shotty central mesenteric and bilateral inguinal lymph nodes. Colonic diverticulosis without evidence of acute diverticulitis. All CT scans at this facility are performed using low dose modulation techniqu es as appropriate to perform exam including the following: automated exposure c ontrol; use of iterative reconstruction technique; adjustment of the mA and/or kV according to patient size (this includes techniques or standardized protocol s for targeted exams where dose is matched to indication/reason for exam).
== END 2025-04-20 15:31 | disposition home or self-care (01) ==
LOC: MICIMG 15:31
PROVIDERS: PCP Family Medicine; Visit Provider Nurse Practitioner
DX: K57.30 Diverticulosis of large intestine without perforation or abscess without bleeding (principal); R59.1 Generalized enlarged lymph nodes
CPT/HCPCS: 74177; Q9967